=== PATIENT | female | born 1980 | race Caucasian/White ===

== ENCOUNTER 2018-06-25 23:03 | Emergency (ER) | payer MEDICAID ==
[~2018-06-25] VITALS: Ht 165.1 cm; Wt 101.2 kg
[2018-06-25 23:10] VITALS: BP 137/97
--- NOTE | 2018-06-25 23:12 | NUR ---
PT TAKEN TO BED 7
--- NOTE | 2018-06-25 23:15 | NUR ---
PT BIB FRIEND C/O SOAR THROAT X2 DAYS. PT STATES SUDDEN ONSET OF 7/10 SHARP THROAT PAIN WHEN SWALLOWING, DENIES PAIN MEDS AT HOME. DENIES TRAUMA, N/V/D. BREATHING EQUAL AND UNLABORED. PT ACTING APPRORIATLY. PT IN BED; BED IN LOWER LOCKED POSITION. PENDING ER MD CAMPOS. PMH: DENIES RX: DENIES
--- NOTE | 2018-06-26 00:04 | NUR ---
Patient discharged with v/s stable. Written and verbal after care instructions given and explained. Patient alert, oriented and verbalized understanding of instructions. Ambulatory with steady gait. All questions addressed prior to discharge. ID band removed. Patient advised to follow up with PMD. Rx of ZITHROMAX AND PROMETHAZINE DM given. Patient educated on indication of medication including possible reaction and side effects. Opportunity to ask questions provided and answered.
[2018-06-26 00:05] VITALS: BP 137/97
== END 2018-06-26 00:04 | disposition home or self-care (01) ==
LOC: MED 23:03
DX: J02.9 Acute pharyngitis, unspecified (principal)
CPT/HCPCS: 87804; 99283

== ENCOUNTER 2019-01-26 14:28 | Emergency (ER) | payer MEDICAID, OTHER ==
[~2019-01-26] VITALS: Ht 165.1 cm; Wt 90.7 kg
--- NOTE | 2019-01-26 14:35 | NUR ---
PT TAKEN TO ER BED 09
[2019-01-26 14:41] VITALS: BP 126/87
--- NOTE | 2019-01-26 15:11 | NUR ---
R SIDED LOWER QUADRANT AND GROIN PAIN, 8/10, WITH NAUSEA X 1 HR. PT DENIES VOMITING OR DIARRHEA. LAST BM THIS AM, SOFT BUT FORMED PER PATIENT. BOWEL SOUNDS ACTIVE IN ALL 4 QUADRANTS. ABDOMEN LARGE AND SOFT. NONTENDER. PT TACHY AT 104, ALERT AND AWAKE, AMBULATORY WITH STEADY GAIT. BED IS DOWN, LOCKED, BED RAIL X 1, ERMD TO SEE PT. PMH- DENIES
--- NOTE | 2019-01-26 15:12 | NUR ---
[facility]
--- NOTE | 2019-01-26 15:16 | NUR ---
PT UNABLE TO PROVIDE URINE AT THIS TIME
--- NOTE | 2019-01-26 15:23 | NUR ---
DR NICHOLE AT BEDSIDE
--- NOTE | 2019-01-26 15:56 | NUR ---
NO URINE AT THIS TIME. PT LAUGHING AT BEDSIDE WITH FRIEND
[2019-01-26 16:29] VITALS: BP 126/87
--- NOTE | 2019-01-26 16:30 | NUR ---
Patient discharged with v/s stable. Written and verbal after care instructions given and explained. Patient alert, oriented and verbalized understanding of instructions. Ambulatory with steady gait. All questions addressed prior to discharge. ID band removed. Patient advised to follow up with PMD. Rx of AZITHROMYCIN, PREDNISONE, PROMETHAZINE, FLONASE given. Patient educated on indication of medication including possible reaction and side effects. Opportunity to ask questions provided and answered.
== END 2019-01-26 16:30 | disposition home or self-care (01) ==
LOC: MED 14:28
DX: K40.90 Unilateral inguinal hernia, without obstruction or gangrene, not specified as recurrent (principal); R09.82 Postnasal drip; R05 Cough; F17.200 Nicotine dependence, unspecified, uncomplicated; F12.90 Cannabis use, unspecified, uncomplicated
CPT/HCPCS: 99283

== ENCOUNTER 2019-04-27 01:46 | Emergency (ER) | payer OTHER ==
[~2019-04-27] VITALS: Ht 165.1 cm; Wt 97.5 kg
[2019-04-27 02:20] VITALS: BP 120/95
--- NOTE | 2019-04-27 02:23 | NUR ---
TO [id number] A/W BED AMBULATORY
--- NOTE | 2019-04-27 03:42 | NUR ---
PT AMBULATED TO BED 9
--- NOTE | 2019-04-27 04:00 | NUR ---
PT APPEARS TO BE IN NO DISTRESS. PT C/O NAUSEA AND DIARREA X 2 DAYS. PT STATES ABD PAIN RLQ WELL. PT DENIES PAIN AT THIS TIME. PT HAS NO MED HX, KNDA AND DOES NOT TAKE ANY MEDICATION. PT DENIES URIANRY SYMTOMS. PT DENIES PREGANCY. SKIN IS PINK/WARM/DRY; AAOX4 WITH EVEN AND STEADY GAIT; LUNGS CLEAR BL; HR EVEN AND REGULAR; PT DENIES ANY FEVER, CP, SOB, OR COUGH AT THIS TIME; PATIENT STATES PAIN OF 0/10 AT THIS TIME; VSS; PATIENT POSITIONED FOR COMFORT; HOB ELEVATED; BEDRAILS UP X1; BED DOWN.
[2019-04-27] MEDS ORDERED: ONDANSETRON 4 MG TAB PO ONE (05:15)
[2019-04-27 05:58] VITALS: BP 154/70
--- NOTE | 2019-04-27 05:58 | NUR ---
Patient discharged with v/s stable. Written and verbal after care instructions given and explained. Patient alert, oriented and verbalized understanding of instructions. Ambulatory with steady gait. All questions addressed prior to discharge. ID band removed. Patient advised to follow up with PMD. Rx of ZOFRAN WAS given. Patient educated on indication of medication including possible reaction and side effects. Opportunity to ask questions provided and answered.
[2019-04-27 06:41] LABS: BILIRUBIN,URINE NEGATIVE (NEGATIVE); BLOOD, URINE 1+ (NEGATIVE); COLOR,URINE YELLOW (YELLOW); LEUKOCYTE ESTERASE ,URINE NEGATIVE (NEGATIVE); NITRITE, URINE NEGATIVE (NEGATIVE); UGLUCOSE NEGATIVE (NEGATIVE)
[2019-04-27 06:44] LABS: APPEARANCE,URINE SLIGHTLY HAZY (CLEAR)
[2019-04-27 07:03] LABS: WBC,URINE 0-5 /HPF (0-5)
== END 2019-04-27 05:58 | disposition home or self-care (01) ==
LOC: MED 01:46
DX: A08.4 Viral intestinal infection, unspecified (principal)
CPT/HCPCS: 81001; 81025; 99283; Q0162

== ENCOUNTER 2022-01-22 14:14 | Emergency (ER) | payer OTHER ==
[~2022-01-22] VITALS: Ht 165.1 cm; Wt 79.1 kg
[2022-01-22 14:30] VITALS: BP 125/88
[2022-01-22] MEDS ORDERED: FLUORESCEIN OPTH STRIP 1 MG OP ONE (14:45)
[2022-01-22] MEDS ORDERED: TETRACAINE HCL/PF 0.5% OPTH 4 ML BTL OP ONE (14:45)
--- NOTE | 2022-01-22 14:56 | NUR ---
called name in lobby and outside no answer
--- NOTE | 2022-01-22 14:59 | NUR ---
pt ambulated to bed 04
--- NOTE | 2022-01-22 15:00 | NUR ---
41 y/o female, c/o left eye pain/irritation, redness that started yesterday in relation to incident. pt she was working on a car yesterday when she believes flake of something flew into her eye. pt states she tried washing it out with distilled water and using allergy eyedrops without improvement. woke up this morning she had mucus and discharge around her left eye. pt states she does not wear contacts and does not have glasses. a&ox4, ambulates with steady gait. pmh: denies nka med: allergy eye drops
[2022-01-22] MEDS ORDERED: ERYT5OIN58 OP (15:44)
--- NOTE | 2022-01-22 15:50 | NUR ---
Patient discharged with v/s stable. Written and verbal after care instructions given and explained. Patient verbalized understanding. Ambulatory with steady gait. All questions addressed prior to discharge. Advised to follow up with PMD.
== END 2022-01-22 15:50 | disposition home or self-care (01) ==
LOC: MED 14:14
DX: T15.02XA Foreign body in cornea, left eye, initial encounter (principal); Z79.899 Other long term (current) drug therapy; X58.XXXA Exposure to other specified factors, initial encounter; Y93.89 Activity, other specified; Y92.89 Other specified places as the place of occurrence of the external cause; Y99.8 Other external cause status
CPT/HCPCS: 65220; 99284